=== PATIENT | male | born 1960 | race Caucasian/White ===

== ENCOUNTER 2019-02-13 00:26 | Outpatient (CLI) | payer MEDICAID, SELFPAY ==
--- NOTE | 2019-02-13 08:00 | DI.RAD_ITS ---
SYMPTOM/DIAGNOSIS: FELL, LT SHOULDER PAIN, M25.512 LEFT SHOULDER: Five views were obtained. There is no evidence of a glenohumeral dislocation. There are degenerative changes of the acromioclavicular and glenohumeral joints with mild hypertrophic spurring. No other significant bony abnormality is seen.
== END 2019-02-13 00:46 ==
PROVIDERS: PCP Family Medicine; Visit Provider Family Medicine
DX: M25.512 Pain in left shoulder (principal); M19.012 Primary osteoarthritis, left shoulder; Z00.00 Encounter for general adult medical examination without abnormal findings
CPT/HCPCS: 36415; 80053; 80061; 83721; 85027; 73030

== ENCOUNTER 2019-04-12 13:39 | Emergency (ER) | payer MEDICAID, SELFPAY ==
[2019-04-12 13:41] VITALS: BP 161/94; PULSE 82; RESP 16; TEMP 36.5; O2SAT 95
[2019-04-12] MEDS: Lidocaine/Epinephri/Tetracaine Topical Gel 3 ML TP (14:00)
--- NOTE | 2019-04-12 14:20 | W.ED.GENAD ---
Discharge Plan Disposition Patient Disposition: HOME Condition: Good Discharge Details Chief Complaint: Laceration Clinical Impression: Superficial laceration of face Primary Care Provider: Casey Steen ED Provider: Mario Balbuena Home Meds and New Rx's Prescriptions: No Action No Known Home Meds RF: 0 Discharge Instructions Instructions: Facial Laceration (ED) Additional Instructions: Return for any bruising or bleeding, any return of symptoms, or any further concerns you may have. Otherwise follow-up with your primary care provider as needed for reassessment Referrals: Casey Steen [Primary Care Provider] - (As needed) Discharge Data Discharge Date/Time-TO BE ENTERED AT DEPARTURE: 04/12/19 14:28 Medical Decision Making Patient presenting to the emergency department for chief complaint of facial laceration. Patient states that while he was shaving today he excellently cut his face and thinks he may have caught off a small mole. Patient denies any other abnormal bleeding or bruising, no hematuria, no melena, no other bleeding symptoms. Patient has a very small oozing wound to the right cheek that in spite of holding pressure continues to bleed with removing of pressure. Let was applied to the wound which was able to stop the bleeding. Patient has a very small superficial laceration. Glue was applied to this area and hemostasis was achieved. Patient was encouraged to return for any new or worsening symptoms but at this time I do not feel any blood work or labs or any other interventions are needed. After discussion of diagnosis and plan of care patient has no further needs, questions, or concerns and states clear understanding to return to the emergency department for any worsening symptoms. HPI General Mode of arrival: ambulatory. Date/Time Provider Initiated Documentation: 04/12/19 13:49. Limitations to Documentation: no limitations. Information obtained by: patient and RN notes reviewed. History of Present Illness 58 year old M presents to the emergency department with the chief complaint of facail laceration, Quality is described as other (no pain), and is localized to the face. Patient started experiencing this hour(s) (4) and it has been constant and intermittent. No relieving factors improve symptom(s), Patient notes no other symptoms.. Patient did receive the following treatments prior to arrival, none Related Data Home Medications Medication Instructions Recorded Confirmed Unknown [No Known Home Meds] 05/07/19 07/12/19 Allergies Allergy/AdvReac Type Severity Reaction Status Date / Time No Known Allergies Allergy Unverified 04/12/19 13:46 General Stated Complaint: Laceration MICHELLE: 5 Review of Systems Gastrointestinal Denies melena and Denies hematochezia Genitourinary Denies hematuria Integumentary/Breasts Reports as per HPI Hematologic/Lymphatic Denies easy bleeding and Denies easy bruising PFSH Family History Mother Leukemia Father Heart disease Sister Cancer Brother No problems noted. Brother No problems noted. Social History Smoking/Tobacco Use Status: Current every day Tobacco: How many years used: 40 Quit status: considering quitting Alcohol Intake: current Alcohol Intake frequency: 0-2 drinks per day Alcohol type: beer Drug use: Occasionally Substance use type: marijuana Caregiver/Support person: No Household members: spouse Communication Needs: Corrective Lenses Do you need help understanding health information?: Rarely Pets and animals: Yes Pets and animals: cat(s) and dog(s) Sexually active: No Do you think of yourself as: straight/heterosexual Current gender identity: male What is your relationship status?: How often do you talk on the phone with friends or family?: twice per week How often do you get together with friends or relatives?: once per week How often do you attend caodaism or oriental orthodox services?: decline to answer Do you belong to any clubs or organized social groups?: no Panel score (0-1 are the most socially isolated patients): 2 What type of physical activity do you participate in: walking Duration: 15-30 minutes/day Frequency: daily Annie/Restorationism: None Special annie needs: No Seatbelt use: always Helmet use: No Drive intox or ride w/intox tier truck driver: No Do you feel safe at home: Yes Do you feel safe in your relationship?: Yes Exam Const General: cooperative and no acute distress Orientation: alert, awake and oriented x3 Limitations: mental status not altered Resp Effort & Inspection: normal respiratory effort and able to speak in complete sentences Skin Trauma: laceration (Superficial to right cheek cheek) Course Vital Signs Temperature 36.5 C 04/12/19 13:41 Pulse 82 04/12/19 13:41 Respiratory Rate 16 04/12/19 13:41 Blood Pressure 161/94 H 04/12/19 13:41 Pulse Oximetry 95 04/12/19 13:41 Temperature 36.5 C 04/12/19 13:41 Temperature Source Skin 04/12/19 13:41 Pulse 82 04/12/19 13:41 Respiratory Rate 16 04/12/19 13:41 Respiratory Effort Non-Labored 04/12/19 13:45 Blood Pressure 161/94 H 04/12/19 13:41 Blood Pressure Position Sitting 04/12/19 13:41 Pulse Oximetry 95 04/12/19 13:41 Oxygen Delivery Method Room Air 04/12/19 13:41 Oxygen Flow Rate 0 04/12/19 13:41 Pain Level 0 04/12/19 13:41
== END 2019-04-12 14:28 | disposition home or self-care (01) ==
PROVIDERS: Emergency Provider Nurse Practitioner Family; PCP Family Medicine
DX: S01.81XA Laceration without foreign body of other part of head, initial encounter (principal); W45.8XXA Other foreign body or object entering through skin, initial encounter
CPT/HCPCS: 12001

== ENCOUNTER 2024-08-14 00:51 | Outpatient (CLI) | payer MEDICARE, MEDICAID, SELFPAY ==
--- NOTE | 2024-08-14 07:00 | DI.CTLCSR_ITS ---
Exam(s) CT CHEST LUNG CANCER SCREEN EXAM: CT CHEST LUNG CANCER SCREEN CLINICAL HISTORY: Screening for lung cancer,current smoker, f17.210 TECHNIQUE: Imaging Protocol: Axial computed tomography images with coronal and sagittal reformatted images were created and reviewed. Low dose screening protocol. COMPARISON: No exams were available for comparison FINDINGS: Tracheobronchial tree: No bronchiectasis or mucus plugging. Mediastinum and Yuliya: Calcified small hilar lymph nodes. Tiny hiatal hernia. Pulmonary parenchyma: No consolidation or dominant measurable mass. Minimal emphysematous changes. No significant interstitial changes. Lung Nodules: Calcified granuloma in the lingula. Calcified granuloma right lower lobe. Pleura: No effusion. No pneumothorax. Heart: The heart is not dilated. Minimal coronary artery calcifications are seen. No pericardial effu cookie. Aorta: Thoracic aorta non-dilated. Upper abdomen: Unremarkable. Bones: Unremarkable for age. Soft Tissues: Mild bilateral gynecomastia. IMPRESSION: No suspicious pulmonary nodules. Lung RADS Cat 1 - Negative: No nodules and definitely benign nodules Lung-RADS 1.0 CATEGORIES: Category 0 - Prior chest CT exam(s) being located for comparison. Category 1 - Annual screening in 12 months. No nodules or definitely benign nodules. Category 2 - Annual screening in 12 months. Benign appearance. Nodules with low likelihood of becomin g active cancer. Category 3 - 6-month follow-up. Probably benign. Short-term follow-up suggested. Nodules with low lik elihood of becoming active cancer. Category 4A - 3-month follow-up and CT/PET if >8 mm in size. Suspicious finding. Findings which requi re additional testing. Category 4B - Findings which require additional testing and tissue sampling. Category 4X - Category 3 or 4 nodules with additional features or imaging findings that increases the suspicion of malignancy. Modifier S- Potentially clinically significant findings (non lung cancer) RADIATION DOSE DELIVERED: !Error Total DLP DATA REPOSITORY: All CT scans at this facility are submitted to the National Radiology Data Registry (NRDR) Dose Index Registry (DIR) with the [employer] (ACR). RADIATION OPTIMIZATION: All CT scans at this facility use at least one of these dose optimization te chniques: automated exposure control; mA and/or kV adjustment per patient size (includes targeted exa ms where dose is matched to clinical indication); or iterative reconstruction.
--- NOTE | 2024-08-14 10:05 | DI.US_ITS ---
Exam(s) US AAA SCREENING EXAM: US AAA SCREENING CLINICAL HISTORY: tobacco use, screening for aaa,z72.0 COMPARISON: No exams were available for comparison FINDINGS: Abdominal Aorta: Proximal: 2.7 cm Mid: 2.6 cm Distal: 2.2 cm Iliacs: Right: 1.4 cm Left: 1.5 cm IMPRESSION: No evidence of abdominal aortic aneurysm. DATA REPOSITORY:
== END 2024-08-14 01:11 ==
LOC: DI 00:52
PROVIDERS: PCP Family Medicine; Visit Provider Family Medicine
DX: F17.210 Nicotine dependence, cigarettes, uncomplicated (principal); Z13.6 Encounter for screening for cardiovascular disorders; Z12.2 Encounter for screening for malignant neoplasm of respiratory organs
CPT/HCPCS: 71271; 76706

== ENCOUNTER 2024-08-21 01:35 | Outpatient (CLI) | payer MEDICARE, MEDICAID, SELFPAY ==
--- NOTE | 2024-08-21 07:15 | DI.MRI_ITS ---
Exam(s) MR LUMBAR SPINE WO EXAM: MR LUMBAR SPINE WO CLINICAL HISTORY: chronic back pain,lumbago,m54.5. TECHNIQUE: Multiplanar multisequence MRI of the Lumbar spine was performed. COMPARISON: MR [facility]R from 08/23/2003 [facility] CR from 05/22/2007 CR LUMBAR SPINE COMPLETE from 02/01/2012 FINDINGS: Conus medullaris is at normal level. There is no evidence of conus mass nor subjacent clumping of in trathecal nerve roots to suggest arachnoiditis. The distal thecal sac is at the L5-S1 level. It samuel ears somewhat than previous at its most distal aspect be hind the L5 level with increased epidural li pomatosis at this level.There is no evidence of Tarlov intrasacral cysts nor other significant findin gs within the sacral canal Bones:There are no fractures nor ominous osseous lesions in the lumbar vertebral bodies and visualize d sacrum. With respect to the individual levels... T12-L1: Unremarkable L1-2: Normal disc height and signal. No disc herniation nor central canal stenosis.No foraminal steno sis L2-3: Normal disc height. No disc herniation nor central canal stenosis.No foraminal stenosis.No face t arthropathy. L3-4: Normal disc height. No disc herniation or central canal stenosis.No foraminal stenosis.No face t arthropathy. L4-5: There is preserved disc height at this level. No disc herniation or central canal stenosis. N o significant foraminal stenosis. No significant facet arthropathy. L5-S1: There is again noted significant anterolisthesis L5 upon S1 related to bilateral pars interart icularis defects at L5 level. There is approximately 10 mm anterior listhesis of L5 upon S1 noted, p erhaps slightly more so than 2002. There is also advanced disc space narrowing at this level. The a nterior slippage and pars defects result in increased AP dimension of the canal at this level. There is no central spinal canal stenosis. However, the lateral recesses are carried forward and this plu s the significant decreased disc height results in significant bilateral foraminal stenosis at L5-S1 level with compression of the exiting nerve roots bilaterally at this level. Soft tissues: Incidentally noted is what appears to be a nodule in the left adrenal gland measuring approximately 1.6 by 1.4 cm. The opposite-right adrenal gland appears unremarkable. IMPRESSION: 1. Compared to the prior MRI scan of 2003 there is again noted anterolisthesis of L5 upon S1 with samuel roximately 1 cm anterior slippage of L5 upon S1 due to bilateral pars interarticularis defects at the L5 level and the amount of slippage as slightly further increased when compared to the study of 2003 . There is no central canal stenosis at this level but there is significant relatively symmetrical b ilateral foraminal stenosis with impingement upon the exiting bilateral nerve roots at the L5-S1 leve l due to the anterior slippage-anterior translation of the lateral recesses as well as vertical radhika inal stenosis due to the advanced disc height loss at this level. 2. The distal thecal sac which is at the L5-S1 level appears to be somewhat thinner than previous and this appears to be related to increase in amount of epidural lipomatosis at this level. 3. Incidentally noted is a 1.6 x 1.4 cm nodule in left adrenal gland. The 2003 study did not cover t his area and therefore cannot be compared. If clinically indicated follow-up dedicated imaging of th e adrenal glands can be performed with either CT or MRI adrenal protocol study. DATA REPOSITORY:
== END 2024-08-21 01:55 ==
LOC: DI 01:35
PROVIDERS: PCP Family Medicine; Visit Provider Family Medicine
DX: M43.17 Spondylolisthesis, lumbosacral region (principal)
CPT/HCPCS: 72148

== ENCOUNTER 2024-08-21 11:59 | Outpatient (CLI) | payer MEDICARE, MEDICAID, SELFPAY ==
[2024-08-21 12:11] LABS: Anion Gap 7.4 mmol/L (3-11); BUN 15 mg/dL (7-18); CO2 29.6 mmol/L (21.0-32.0); CREATININE 1.1 mg/dL (0.70-1.30); Calcium 9.2 mg/dL (8.5-10.1); Calculated LDL 107 mg/dL (<100); Chloride 104 mmol/L (98-107); Cholesterol 181 mg/dL (<200); Glucose 103 mg/dL (74-106); HDL Cholesterol 60 mg/dL (40-60); Potassium 4.5 mmol/L (3.5-5.1); Sodium 141 mmol/L (136-145); Triglyceride 74 mg/dL (<150)
[2024-08-21 18:26] LABS: PSA, Screening 1.4 ng/mL (<=4.5)
[2024-08-21 19:16] LABS: Hepatitis C Ab w Rflx HCV PCR Negative (Negative)
[2024-08-21 19:22] LABS: HIV-1/2 Ag & Ab Screen Negative (Negative)
== END 2024-08-21 12:00 | disposition home or self-care (01) ==
LOC: LBO 12:00
PROVIDERS: PCP Family Medicine; Visit Provider Family Medicine
DX: Z12.5 Encounter for screening for malignant neoplasm of prostate (principal); Z11.59 Encounter for screening for other viral diseases; Z11.4 Encounter for screening for human immunodeficiency virus [HIV]; Z13.6 Encounter for screening for cardiovascular disorders; Z13.1 Encounter for screening for diabetes mellitus
CPT/HCPCS: 36415; 80048; 80061; 84153; 86803; 87389; 72148